=== PATIENT | female | born 1955 | race Caucasian/White ===

== ENCOUNTER 2017-12-12 10:17 | Emergency (ER) | payer OTHER ==
[~2017-12-12] VITALS: Ht 165.1 cm; Wt 100.2 kg
[2017-12-12] MEDS ORDERED: TYLENOL325 MG PO (10:27)
[2017-12-12] MEDS ORDERED: COZAAR 50 MG TA50 M2 PO (10:27)
[2017-12-12] MEDS ORDERED: LIPITOR 20 MG T20 M1 PO (10:27)
[2017-12-12] MEDS ORDERED: LEXAPRO 10 MG T10 M2 PO (10:28)
[2017-12-12] MEDS ORDERED: VITAMIN D250000 UNIT PO (10:28)
[2017-12-12] MEDS ORDERED: OMEPRAZOLE20 MG PO (10:28)
[2017-12-12 11:12] LABS: ABSOLUTE EOSINOPHILS 0.1 thou/uL (0.0-0.7); ABSOLUTE LYMPHOCYTES 1.7 thou/uL (0.8-5.3); ABSOLUTE MONOCYTES 0.5 thou/uL (0.0-1.2); ABSOLUTE NEUTROPHILS 3.1 thou/uL (1.6-8.1); BASOPHILS 0.6 %; EOSINOPHILS 2.5 %; HEMATOCRIT 42.3 % (37.0-47.0); LYMPHOCYTES 31.3 %; MCH 30.5 pg (26.0-34.0); MCHC 33.1 g/dL (28.0-37.0); MCV 92.1 fL (80.0-100.0); MONOCYTES 9.8 %; MPV 8.7 fl. (7.2-11.1); NUCLEATED RBCS 0 /100WBC; PLATELET COUNT* 219 thou/uL (150-400); POLYS 55.8 %; RBC 4.59 mil/uL (4.20-5.00); RDW-CV 12.9 % (10.5-14.5); WBC 5.6 thou/uL (4.0-11.0)
[2017-12-12 11:20] LABS: ANION GAP 3 mmol/L (7-16); BUN 14 mg/dL (7-18); CALCIUM 8.4 mg/dL (8.5-10.1); CHLORIDE 102 mmol/L (98-107); CO2 34 mmol/L (21-32); CREATININE 0.7 mg/dL (0.6-1.3); GLUCOSE 84 mg/dL (70-99); POTASSIUM 3.9 mmol/L (3.5-5.1); SODIUM 139 mmol/L (136-145)
[2017-12-12 11:25] LABS: ALBUMIN 3.3 g/dL (3.4-5.0); ALKALINE PHOSPHATASE 102 U/L (46-116); SGOT 16 U/L (15-37); SGPT 19 U/L (30-65); TOTAL BILIRUBIN 0.7 mg/dL (<0.1-1.0); TROPONIN-I LEVEL <0.06 ng/mL (<0.06)
[2017-12-12] MEDS ORDERED: ZPAK PO (12:33)
[2017-12-12] MEDS ORDERED: VALIUM5 MG PO (12:33)
[2017-12-12 12:46] VITALS: BP 145/81
--- NOTE | 2017-12-14 10:21 | EKG ---
[place] [address] ELECTROCARDIOGRAM REPORT Name: AYDEE BAXTER Room: 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: Oliva GARCIA : 1955 Requested By: Balbir Liriano Order Number: [id number] MD: Braydon Shankar Measurements Intervals [place] Rate: 69 P: 56 MT: 173 QRS: -20 QRSD: 102 T: 21 QT: 406 QTc: 435 Interpretive Statements Sinus rhythm Left ventricular hypertrophy Compared to ECG 09/01/2009 11:04:51 Left ventricular hypertrophy now present Electronically Signed On 12-14-2017 10:21:01 CDT by Braydon Shankar [email or web address] <ELECTRONICALLY SIGNED> By: Braydon Shankar MD, [facility] 12/14/17 1021 1105 [id number] Braydon Shankar MD, [facility] /EPI
== END 2017-12-12 12:47 | disposition home or self-care (01) ==
LOC: M.ERS 10:17
PROVIDERS: Emergency Medicine Emergency Medical Services
DX: H81.391 Other peripheral vertigo, right ear (principal); H66.91 Otitis media, unspecified, right ear; K21.9 Gastro-esophageal reflux disease without esophagitis; Z88.0 Allergy status to penicillin

== ENCOUNTER → 2018-04-08 | Outpatient (CLI) | payer OTHER ==
[~2018-04-08] MED LIST: COZAAR 50 MG TA50 M2 PO; LEXAPRO 10 MG T10 M2 PO; LIPITOR 20 MG T20 M1 PO; OMEPRAZOLE20 MG PO; TYLENOL325 MG PO; VALIUM5 MG PO; VITAMIN D250000 UNIT PO; ZPAK PO
== END ==
LOC: M.RAD 09:11
DX: Z12.31 Encounter for screening mammogram for malignant neoplasm of breast (principal)

== ENCOUNTER → 2019-04-18 | Outpatient (CLI) | payer OTHER | LOC: M.RAD 04-11 11:00 | DX: Z12.31 Encounter for screening mammogram for malignant neoplasm of breast (principal) ==

== ENCOUNTER → 2020-04-19 | Outpatient (CLI) | payer BC | LOC: M.RAD 08:00 | PROVIDERS: ATTEND Family Medicine | DX: Z12.31 Encounter for screening mammogram for malignant neoplasm of breast (principal) ==

== ENCOUNTER → 2021-03-23 | Outpatient (CLI) | payer BC | LOC: M.RAD 09:00 | PROVIDERS: ATTEND Family Medicine | DX: Z12.31 Encounter for screening mammogram for malignant neoplasm of breast (principal) ==